=== PATIENT | male | born 1970 | race Caucasian/White ===

== ENCOUNTER 2021-03-08 18:18 | Emergency (ER) | payer BC, SELFPAY ==
[2021-03-08 18:29] VITALS: BP 136/89; PULSE 64; RESP 16; TEMP 36.4; O2SAT 96; BMI 30.4
--- NOTE | 2021-03-08 18:54 | CTR_ITS ---
PROCEDURE INFORMATION: Exam: CT Abdomen And Pelvis With Contrast Exam date and time: 03/08/2021 6:54 PM Age: 50 years old Clinical indication: Abdominal pain; Generalized; Prior surgery; Surgery date: 6+ months; Surgery type: Gb; Patient HX: C/O abd pain w n/v TECHNIQUE: Imaging protocol: Computed tomography of the abdomen and pelvis with contrast. Radiation optimization: All CT scans at this facility use at least one of these dose optimization techniques: automated exposure control; mA and/or kV adjustment per patient size (includes targeted exams where dose is matched to clinical indication); or iterative reconstruction. Contrast material: OMNI 300; Contrast volume: 95 ml; Contrast route: INTRAVENOUS (IV); COMPARISON: No relevant prior studies available. RADIATION DOSE METRICS: Total DLP (mGy-cm): 2004.18 FINDINGS: Liver: Multiple hepatic cysts at least one of which measures larger than 1.0 cm in size. Other low-attenuation lesions in the liver are too small to characterize. Gallbladder and bile ducts: Surgical clips in the gallbladder fossa consistent with cholecystectomy. Dilatation of the intra-and extrahepatic biliary tree which can be normal following cholecystectomy. Common bile duct measures 12 mm. Calcified debris in the distal common bile duct suggesting choledocholithiasis. Possible obstruction creating dilatation of the biliary tree and possibly gallstone pancreatitis. Pancreas: Moderate inflammation surrounding the entire pancreas consistent with moderate radiographic pancreatitis. Spleen: Normal. No splenomegaly. Adrenal glands: Normal. No mass. Kidneys and ureters: Normal. No hydronephrosis. Stomach and bowel: Moderate diverticulosis. Appendix: No evidence of appendicitis. Intraperitoneal space: Unremarkable. No free air. No significant fluid collection. Vasculature: Calcification of the abdominal aorta and/or iliac arteries consistent with atherosclerotic vessel disease. Lymph nodes: Unremarkable. No enlarged lymph nodes. Urinary bladder: Unremarkable as visualized. Reproductive: Nonspecific prostate calcifications. Bones/joints: Unremarkable. No acute fracture. Soft tissues: Unremarkable. CT/CT abdomen pelvis w con* [id number] IMPRESSION: 1. Dilatation of the intra-and extrahepatic biliary tree which can be normal following cholecystectomy. Common bile duct measures 12 mm. 2. Moderate inflammation surrounding the entire pancreas consistent with moderate radiographic pancreatitis. 3. Calcified debris in the distal common bile duct suggesting choledocholithiasis. Possible obstruction creating dilatation of the biliary tree and possibly gallstone pancreatitis. Radiation Dose CTDIVOL = (mGy): DLP = 2004.18 (mGy-cm)
--- NOTE | 2021-03-08 19:01 | ED_ITS ---
HPI - Abdominal Pain General: Chief Complaint: Abdominal Pain Stated Complaint: abdomen pain Time Seen by Provider: 03/08/21 18:49 Source: patient Mode of arrival: ambulatory Limitations: no limitations History of Present Illness: HPI narrative: 50-year-old male states he started having abdominal pain few hours ago. Patient is in obvious distress here and he states he is in severe pain he rates a 9 out of 10. States had nausea and vomiting. He states pain is worse with movement and palpation. He states slightly improved with rest. Denies any radiation of his pain. MD elicited complaint: abdominal pain Associated Symptoms: Reports nausea and vomiting; Denies chills, dysuria and fever(s) Review of Systems Const: Denies: fever(s), chills, body aches or change in appetite Eyes: Denies: blurry vision or eye discomfort ENMT: Denies: throat pain or dental pain Card: Denies: chest pain Resp: Denies: dyspnea GI: Reports: abdominal pain, nausea and vomiting : Denies: dysuria Musc: Denies: neck pain or back pain Skin/Breast: Denies: rash Neuro: Denies: headache(s) Psych: Denies: depression Sreedhar/Lymph: Denies: easy bruising All/Imm: Denies: urticaria Physical Exam Const: COMMON NORMALS: patient oriented x3 and healthy appearing GENERAL APPEARANCE: in distress HENMT: COMMON NORMALS: normocephalic and atraumatic HEAD & SCALP: normocephalic and atraumatic Eye: COMMON NORMALS: Equal, round and reactive pupils present and EOMs intact bilaterally PUPIL: Yes Equal, round and reactive pupils present Neck/C-Spine: COMMON NORMALS: full ROM and supple Chest: COMMONS NORMALS: normal inspection of the chest and normal palpation of entire chest wall Resp: COMMON NORMALS: normal respiratory effort, No retractions, No use of accessory muscles and clear to auscultation bilaterally AUSCULTATION: clear to auscultation bilaterally Cardio: COMMON NORMALS: regular rate, regular rhythm and No murmurs present (Cardio) RATE: regular rate RHYTHM: regular rhythm GI: COMMON NORMALS: no masses PALPATION: Yes Tenderness to palpation present (GI) (diffuse) Extremity: COMMON NORMALS: normal to inspection and full ROM Neuro: COMMON NORMALS: patient oriented x3, moves all extremities and no focal motor deficits Psych: COMMON NORMALS: mental status grossly normal, Normal thought process present and cooperative THOUGHT PROCESS: Normal thought process present Skin: COMMON NORMALS: no rashes or lesions noted and no wounds GENERAL SKIN EXAM: no rashes or lesions noted Course Vital Signs: Vital signs: Vital Signs Temperature 97.5 F L 03/08/21 18:29 Pulse Rate 77 03/08/21 21:28 Respiratory Rate 18 03/08/21 21:28 Blood Pressure 151/104 03/08/21 21:28 Pulse Oximetry 91 03/08/21 21:28 MDM - Abdominal Pain MDM Narrative: Medical decision making narrative: Patient presents here with pancreatitis likely from a choledocholithiasis. He does have a stone in his du ct it appears with CBD thickening. Patient's pains improved here. I did give him fluids and IV antibiotics. Spoke to physician at [facility] and will transfer there for higher level of care for GI. Lab Data: Labs: Lab Results 03/08/21 03/08/21 03/08/21 Range/Units 19:02 19:02 19:02 WBC 10.9 H (4.0-10.0) 10^3/ uL RBC 5.40 H (4.1-5.3) 10^6/u L Hgb 16.8 H (11.7-16.6) g/dL Hct 48.6 (42.0-52.0) % MCV 90.0 (80-94) fL MCH 31.1 (28.0-34.0) pg MCHC 34.6 (30.0-36.0) g/dL RDW 12.0 L (12.1-15.1) % Plt Count 248 (130-400) 10^3/c mm MPV 9.8 (7.4-10.4) fL Neut % (Auto) 78.1 % Lymph % (Auto) 14.1 % Hickman % (Auto) 6.4 % Eos % (Auto) 0.5 % Baso % (Auto) 0.4 % Neut # (Auto) 8.55 H (1.8-7.7) 10^3/u L Lymph # (Auto) 1.5 (0.8-4.8) 10^3/u L Hickman # (Auto) 0.7 (0.2-0.9) 10^3/u L Eos # (Auto) 0.1 (0.0-0.8) 10^3/u L Baso # (Auto) 0.0 (0.0-0.1) 10^3/u L Nucleated RBC % (a uto) 0 % Nucleated RBCs # 0.0 /100WBC Sodium 141 (136-145) mmol/L Potassium 3.4 L (3.5-5.1) mmol/L Chloride 101 (98-107) mmol/L Carbon Dioxide 25 (22-29) mmol/L Anion Gap 18.4 (5-19) BUN 22 H (6-20) mg/dL Creatinine 1.1 (0.7-1.2) mg/dL GFR Calculation 70.6 L (90-130) mL/min Glucose 177 H (65-115) mg/dL Calculated Osmolal ity 300 H (285-295) mOsm/k g Lactate 2.9 H (0.5-2.2) mmol/L Calcium 9.3 (8.5-10.5) mg/dL Total Bilirubin 1.8 H (0.15-1.2) mg/dL AST 749 H (0-40) U/L ALT 1238 H (0-41) U/L Alkaline Phosphata se 151 H (40-130) IU/L Total Protein 6.7 (6.6-8.7) g/dL Albumin 4.5 (3.5-5.2) g/dL Globulin 2.2 (1.3-4.6) g/dL Lipase 7899 H (13-60) U/L Urine Color (Yellow) Urine Appearance (CLEAR) Urine pH (5-7) Ur Specific Gravit y (1.005-1.030) Urine Protein (Negative) Urine Glucose (UA) (Normal) Urine Ketones (Negative) Urine Blood (Negative) Urine Nitrate (Negative) Urine Bilirubin (Negative) Urine Urobilinogen (Negative) mg/dL Ur Leukocyte Gay ase (Negative) 03/08/21 Range/Units 20:45 WBC (4.0-10.0) 10^3/ uL RBC (4.1-5.3) 10^6/u L Hgb (11.7-16.6) g/dL Hct (42.0-52.0) % MCV (80-94) fL MCH (28.0-34.0) pg MCHC (30.0-36.0) g/dL RDW (12.1-15.1) % Plt Count (130-400) 10^3/c mm MPV (7.4-10.4) fL Neut % (Auto) % Lymph % (Auto) % Hickman % (Auto) % Eos % (Auto) % Baso % (Auto) % Neut # (Auto) (1.8-7.7) 10^3/u L Lymph # (Auto) (0.8-4.8) 10^3/u L Hickman # (Auto) (0.2-0.9) 10^3/u L Eos # (Auto) (0.0-0.8) 10^3/u L Baso # (Auto) (0.0-0.1) 10^3/u L Nucleated RBC % (a uto) % Nucleated RBCs # /100WBC Sodium (136-145) mmol/L Potassium (3.5-5.1) mmol/L Chloride (98-107) mmol/L Carbon Dioxide (22-29) mmol/L Anion Gap (5-19) BUN (6-20) mg/dL Creatinine (0.7-1.2) mg/dL GFR Calculation (90-130) mL/min Glucose (65-115) mg/dL Calculated Osmolal ity (285-295) mOsm/k g Lactate (0.5-2.2) mmol/L Calcium (8.5-10.5) mg/dL Total Bilirubin (0.15-1.2) mg/dL AST (0-40) U/L ALT (0-41) U/L Alkaline Phosphata se (40-130) IU/L Total Protein (6.6-8.7) g/dL Albumin (3.5-5.2) g/dL Globulin (1.3-4.6) g/dL Lipase (13-60) U/L Urine Color Yellow (Yellow) Urine Appearance Clear (CLEAR) Urine pH 5 (5-7) Ur Specific Gravit y 1.020 (1.005-1.030) Urine Protein Neg (Negative) Urine Glucose (UA) Norm (Normal) Urine Ketones 1+ H (Negative) Urine Blood Neg (Negative) Urine Nitrate Negative (Negative) Urine Bilirubin 1+ H (Negative) Urine Urobilinogen 1 H (Negative) mg/dL Ur Leukocyte Gay ase Negative (Negative) Imaging Data ^: CT Abd/Pel: Attestation: I personally reviewed and interpreted this imaging study as follows: Radiologist's impression: [email or web address] [address] [place] [address] CT Scan Report Signed Patient: Mateus Obando Unit #: [id number] : 1970 Age/Sex: 50 / M ADM Date: 03/08/21 Loc: ER Room/Bed: Attending Dr: Ordering Provider/Ordering MD: Lavell Alejandro MD Date of Service: 03/08/21 Procedure(s): CT abdomen pelvis w con* [id number] Accession Number(s): [id number] Report Number: [id number] PROCEDURE INFORMATION: Exam: CT Abdomen And Pelvis With Contrast Exam date and time: 03/08/2021 6:54 PM Age: 50 years old Clinical indication: Abdominal pain; Generalized; Prior surgery; Surgery date: 6+ months; Surgery type: Gb; Patient HX: C/O abd pain w n/v TECHNIQUE: Imaging protocol: Computed tomography of the abdomen and pelvis with contrast. Radiation optimization: All CT scans at this facility use at least one of these dose optimization techniques: automated exposure control; mA and/or kV adjustment per patient size (includes targeted exams where dose is matched to clinical indication); or iterative reconstruction. Contrast material: OMNI 300; Contrast volume: 95 ml; Contrast route: INTRAVENOUS (IV); COMPARISON: No relevant prior studies available. RADIATION DOSE METRICS: Total DLP (mGy-cm): 2005.18 FINDINGS: Liver: Multiple hepatic cysts at least one of which measures larger than 1.0 cm in size. Other low-attenuation lesions in the liver are too small to characterize. Gallbladder and bile ducts: Surgical clips in the gallbladder fossa consistent with cholecystectomy. Dilatation of the intra-and extrahepatic biliary tree which can be normal following cholecystectomy. Common bile duct measures 12 mm. Calcified debris in the distal common bile duct suggesting choledocholithiasis. Possible obstruction creating dilatation of the biliary tree and possibly gallstone pancreatitis. Pancreas: Moderate inflammation surrounding the entire pancreas consistent with moderate radiographic pancreatitis. Spleen: Normal. No splenomegaly. Adrenal glands: Normal. No mass. Kidneys and ureters: Normal. No hydronephrosis. Stomach and bowel: Moderate diverticulosis. Appendix: No evidence of appendicitis. Intraperitoneal space: Unremarkable. No free air. No significant fluid collection. Vasculature: Calcification of the abdominal aorta and/or iliac arteries consistent with atherosclerotic vessel disease. Lymph nodes: Unremarkable. No enlarged lymph nodes. Urinary bladder: Unremarkable as visualized. Reproductive: Nonspecific prostate calcifications. Bones/joints: Unremarkable. No acute fracture. Soft tissues: Unremarkable. CT/CT abdomen pelvis w con* [id number] IMPRESSION: 1. Dilatation of the intra-and extrahepatic biliary tree which can be normal following cholecystectomy. Common bile duct measures 12 mm. 2. Moderate inflammation surrounding the entire pancreas consistent with moderate radiographic pancreatitis. 3. Calcified debris in the distal common bile duct suggesting choledocholithiasis. Possible obstruction creating dilatation of the biliary tree and possibly gallstone pancreatitis. EKG Data ^: EKG 1: Attestation: I personally reviewed and interpreted this EKG as follows: EKG interpretation date: 03/08/21 EKG interpretation time: 19:28 Interpretation: nsr hr [address] or t wave abnormalities qrs 89 qtc 442 Critical Care Time Critical Care Time: Critical Care Time: Yes Total Critical Care Time: 35 Attestation: This case had a high probability of a clinically significant, sudden, or life threatening deterioration of this patient's condition which required my full and direct attention, intervention and personal management. Discharge Plan Discharge Patient Disposition: Xfer Short-Term Hosp Clinical Impression: Choledocholithiasis Pancreatitis Qualifiers: Chronicity: acute Pancreatitis type: biliary Acute pancreatitis complication: unspecified Qualified Code(s): K85.10 - Biliary acute pancreatitis without necrosis or infection Condition: Stable Coding Level of Care Code ED Service Desk Specialist for g Fwd Exam Comprehensive
[2021-03-08] MEDS: sodium chloride 0.9% 1,000 ML 999 ML IV ×2 (19:04→21:27)
[2021-03-08] MEDS: ondansetron 2 mg/ML SDV 2 mL 4 MG IVP ×2 (19:06→23:21)
[2021-03-08] MEDS: HYDROmorphone 1 mg/mL INJ 1 mL IVP ×4 (19:06→23:10)
[2021-03-08 19:16] LABS: Basophils % 0.4 %; Eosinophils # 0.1 10^3/uL (0.0-0.8); Eosinophils % 0.5 %; Hematocrit 48.6 % (42.0-52.0); Hemoglobin 16.8 g/dL (11.7-16.6); Lymphocytes # 1.5 10^3/uL (0.8-4.8); Lymphocytes % 14.1 %; Mean Corpuscular HGB Conc 34.6 g/dL (30.0-36.0); Mean Corpuscular Hemoglobin 31.1 pg (28.0-34.0); Mean Platelet Volume 9.8 fL (7.4-10.4); Monocytes # 0.7 10^3/uL (0.2-0.9); Monocytes % 6.4 %; Neutrophils # 8.55 10^3/uL (1.8-7.7); Neutrophils % 78.1 %; Nucleated Red Blood Cells % 0 %; Platelet Count 248 10^3/cmm (130-400); White Blood Count 10.9 10^3/uL (4.0-10.0)
--- NOTE | 2021-03-08 19:21 | ECG_ITS ---
[facility] Test Date: 2021-03-08 Pat Name: Mateus Obando Department: Room: Gender: Male Dining Room Helper: : 1970 Requested By: Lavell Alejandro Order Number: [id number] Lara MD: Lizzie Camara M.D. Measurements Intervals [place] Rate: 71 P: 17 AL: 148 QRS: 44 QRSD: 89 T: 14 QT: 419 QTc: 458 Interpretive Statements SINUS RHYTHM NONSPECIFIC T-WAVE ABNORMALITY No previous ECG available for comparison Electronically Signed On 03-08-2021 21:03:30 CDT by Lizzie Camara M.D. [email or web address]
[2021-03-08 19:33] LABS: Albumin Level 4.5 g/dL (3.5-5.2); Alkaline Phosphatase 151 IU/L (40-130); Anion Gap 18.4 (5-19); Blood Urea Nitrogen 22 mg/dL (6-20); Calcium 9.3 mg/dL (8.5-10.5); Carbon Dioxide 25 mmol/L (22-29); Chloride 101 mmol/L (98-107); Globulin 2.2 g/dL (1.3-4.6); Glomerular Filtration Rate 70.6 mL/min (90-130); Glucose 177 mg/dL (65-115); Osmolality Calculated 300 mOsm/kg (285-295); Potassium 3.4 mmol/L (3.5-5.1); Sodium 141 mmol/L (136-145); Total Bilirubin 1.8 mg/dL (0.15-1.2); Total Protein 6.7 g/dL (6.6-8.7)
[2021-03-08 19:34] LABS: Lactate (Lactic Acid level) 2.9 mmol/L (0.5-2.2)
[2021-03-08 19:39] VITALS: BP 143/91; PULSE 79; RESP 19; O2SAT 96
[2021-03-08 19:46] LABS: Alanine Aminotransferase 1238 U/L (0-41)
[2021-03-08 19:49] LABS: Aspartate Amino Transferase 749 U/L (0-40)
--- NOTE | 2021-03-08 19:52 | USR_ITS ---
PROCEDURE INFORMATION: Exam: US Abdomen Complete Exam date and time: 03/08/2021 7:52 PM Age: 50 years old Clinical indication: Abdominal pain; Acute; Prior surgery; Surgery date: 6+ months; Surgery type: Gb removal; Patient HX: PT in severe pain. PT states it is like his gb pain before removal; Additional info: Abd pain TECHNIQUE: Imaging protocol: Real-time ultrasound of the abdomen with image documentation. COMPARISON: CT abdomen pelvis w con* [id number] 03/08/2021 7:56 PM FINDINGS: Liver: Multiple hepatic cysts at least one of which measures larger than 1.0 cm in size. Other low-attenuation lesions in the liver are too small to characterize. 15 cm liver. Gallbladder: Absent gallbladder consistent with previous cholecystectomy. Common bile duct: 8.8 mm dilated common bile duct which is within normal limits for the patient's surgical status. Pancreas: Visualized pancreas is unremarkable. Right kidney: 11.4 cm right kidney. 1.6 cm right renal cortex. Left kidney: 11.3 cm left kidney. 1.7 cm left renal cortex. Spleen: 12.0 cm spleen. Aorta: 2.2 cm abdominal aorta. Inferior vena cava: 1.2 cm IVC. US/US abdomen complete* [id number] IMPRESSION: 1. Absent gallbladder consistent with previous cholecystectomy. 2. 8.8 mm dilated common bile duct which is within normal limits for the patient's surgical status. However there appear to be distal common bile duct stones noted on CT which could explain the patient's acute pain.
[2021-03-08] MEDS: iohexol 300 mg/mL 100 mL Btl IV (19:59)
[2021-03-08 20:44] VITALS: BP 140/101; PULSE 64; RESP 19; O2SAT 97
[2021-03-08 20:49] LABS: Add Urine Microscopic? NO; Charge for UA Resulting for Rev
[2021-03-08 20:55] LABS: Bilirubin Urine 1+ (Negative); Glucose Urine UA Norm (Normal); Ketones Urine 1+ (Negative); Leukocyte Esterase Urine Negative (Negative); Nitrate Urine Negative (Negative); Protein Urine Neg (Negative); Urine Appearance Clear (CLEAR); Urine Color Yellow (Yellow); Urobilinogen Urine 1 mg/dL (Negative); pH Urine 5 (5-7)
[2021-03-08 21:03] LABS: Blood Urine Neg (Negative)
[2021-03-08 21:16] LABS: Lipase 7899 U/L (13-60)
[2021-03-08] MEDS: piperacillin-tazobactam 3.375 GM in sodium chloride 0.9% (plus) 50 ML IV (21:24)
[2021-03-08 21:28] VITALS: BP 151/104; PULSE 77; RESP 18; O2SAT 91
[2021-03-08 22:44] VITALS: BP 135/89; PULSE 79; RESP 19; O2SAT 93
--- NOTE | 2021-03-08 22:45 | PC.NURSE ---
Report called to Ilya Guallpa RN at
[2021-03-08 23:12] VITALS: BP 124/84; PULSE 83; RESP 19; O2SAT 94
== END 2021-03-08 23:35 | disposition short-term general hospital (02) ==
PROVIDERS: Emergency Provider Emergency Medicine
DX: K80.50 Calculus of bile duct without cholangitis or cholecystitis without obstruction (principal); K85.10 Biliary acute pancreatitis without necrosis or infection
CPT/HCPCS: 74177; 76700; 80053; 81003; 83605; 83690; 85025; 93005; 96365; 96375; 96376; 99285; J1170; J2405; J2543; J7030; Q9967